=== PATIENT | male | born 1945 | race Caucasian/White ===

== ENCOUNTER 2022-01-07 11:22 | Emergency (ER) | payer MEDICARE, SELFPAY ==
[2022-01-07 11:47] VITALS: BP 141/94; PULSE 56; RESP 18; TEMP 36.6; O2SAT 97; BMI 33.3
--- NOTE | 2022-01-07 12:52 | CRLHL7_ITS ---
For Patients: As a result of the Century Cures Act, medical imaging exams and procedure reports are released immediately into your electronic medical record. You may view this report before your referring provider. If you have questions, please contact your health care provider. INDICATION: TECHNIQUE: Ultrasound venous duplex right lower extremity. COMPARISON: None. FINDINGS: The right common femoral, superficial femoral, deep femoral, popliteal, posterior tibial, and greater saphenous veins are fully compressible with normal waveforms. The contralateral left common femoral artery is fully compressible with normal waveform. No masses evident. IMPRESSION: Normal ultrasound of the right lower extremity veins. Dictated by: Zeke Mejia MD @ 01/07/2022 13:46:55 (Electronically Signed)
[2022-01-07 13:00] VITALS: BP 141/94; PULSE 56; RESP 18; TEMP 36.6; O2SAT 97
--- NOTE | 2022-01-07 13:14 | ED.NURSE ---
Unable to locate pulses in R foot via doppler. informed. No further orders received. U/S at bedside.
--- NOTE | 2022-01-07 13:17 | ED_ITS ---
[facility] - General Adult General Date Seen: 01/07/22 Chief complaint: Unspecified Complaint, Adult Stated complaint: Pain in right leg Time Seen by Provider: 01/07/22 12:42 Related Data Home Medications Medication Instructions Recorded Confirmed glimepiride 01/07/22 lisinopril 20 mg tablet 20 mg PO DAILY 01/07/22 01/07/22 warfarin 01/07/22 PFSH PFS Social History Smoking Status: Unknown if ever smoked How often do you have a drink containing alcohol: monthly or less AUDIT-C Alcohol total score: 1 Non-prescribed substance use: denies use Exam Const: Vital Signs, click to edit/add: Vital Signs - 24 hr 01/07/22 11:47 01/07/22 13:00 01/07/22 14:05 Temperature 97.8 F 97.8 F 97.8 F Pulse Rate [Right Pulse Oximeter] 56 L 56 L Respiratory Rate 18 18 18 Blood Pressure [Ri ght Upper Arm] 141/94 H 141/94 H Pulse Oximetry 97 97 Course Vital Signs Vital signs: Initial Vital Signs Temperature 97.8 F 01/07/22 11:47 Temperature Source Temporal Artery Scan 01/07/22 11:47 Pulse Rate 56 L 01/07/22 11:47 Respiratory Rate 18 01/07/22 11:47 Blood Pressure 141/94 H 01/07/22 11:47 Blood Pressure Mean 109 01/07/22 11:47 Blood Pressure Position Sitting 01/07/22 11:47 Pulse Oximetry 97 01/07/22 11:47 Oxygen Delivery Method 01/07/22 11:47 Vital Signs Temperature 97.8 F 01/07/22 11:47 Pulse Rate 56 L 01/07/22 11:47 Respiratory Rate 18 01/07/22 11:47 Blood Pressure 141/94 H 01/07/22 11:47 Pulse Oximetry 97 01/07/22 11:47 Temperature 97.8 F 01/07/22 14:05 Pulse Rate 56 L 01/07/22 13:00 Respiratory Rate 18 01/07/22 14:05 Blood Pressure 141/94 H 01/07/22 13:00 Pulse Oximetry 97 01/07/22 13:00 Discharge Plan Discharge Clinical Impression: Claudication of right lower extremity Clinical Impression: (Ruled Out): Ring or other jewelry causing external constriction, initial encounter Patient Disposition: Home, Self-Care Condition: Stable Additional Instructions: Primary care follow-up in the next week. You will need evaluation of the arteries in your right leg. If at any time you experience acute severe pain, changes in the color of your right foot, or other worsening, you should be seen right away. Your ultrasound today did not show any evidence of blood clots in the veins of your leg. For now, take a baby aspirin daily. Activity Level: Activity as Tolerated Prescriptions: No Action lisinopril 20 mg tablet 20 mg PO DAILY 0RF glimepiride 0RF warfarin 0RF Follow Up/Referrals: Provider,Not a Local [Primary Care Provider] - Stand Alone Forms: [employer] Info Instructions
[2022-01-07 14:05] VITALS: RESP 18; TEMP 36.6
== END 2022-01-07 14:05 | disposition home or self-care (01) ==
PROVIDERS: Emergency Provider Emergency Medicine
DX: I70.211 Atherosclerosis of native arteries of extremities with intermittent claudication, right leg (principal)
CPT/HCPCS: 93971; 99283